=== PATIENT | female | born 1960 | race Caucasian/White ===

== ENCOUNTER 2018-12-24 16:08 | Emergency (ER) | payer MEDICAID, OTHER ==
[~2018-12-24] VITALS: Ht 165.1 cm; Wt 65.0 kg
[~2018-12-24 16:08] MED LIST: LISI-650; SIMV5TAB2
[2018-12-24 16:36] VITALS: BP 154/98
== END 2018-12-24 21:40 | disposition left against medical advice (07) ==
LOC: ER 16:08
DX: M79.652 Pain in left thigh (principal); Z53.21 Procedure and treatment not carried out due to patient leaving prior to being seen by health care provider

== ENCOUNTER 2020-12-13 10:21 | Emergency (ER) | payer SELFPAY ==
[~2020-12-13] VITALS: Ht 160 cm; Wt 65.0 kg
[2020-12-13] MEDS ORDERED: IBUPROFEN 600MG TABLET PO STA (10:43)
[2020-12-13] MEDS ORDERED: SODIUM CHLORIDE 0.9% 1,000 ML IV ONE (10:45)
[2020-12-13] MEDS ORDERED: ACETAMINOPHEN 325MG TABLET PO ONE (10:45)
[2020-12-13 11:13] LABS: HEMATOCRIT. 34.6 % (36.0-48.0); HEMOGLOBIN. 11.9 g/dL (12.0-16.0); MEAN CORPUSCULAR HEMOGLOBIN 29.3 pg (28.0-32.0); MEAN CORPUSCULAR VOLUME 85.1 fL (81.0-99.0); MEAN PLATELET VOLUME 7.9 fl (7.4-10.4); PLATELET 256 x1000/uL (130-400); RED BLOOD CELL COUNT 4.07 mill/uL (4.2-5.4); RED CELL DISTRIBUTION WIDTH 13.8 % (11.6-14.6)
[2020-12-13 11:16] LABS: CHLORIDE 106 mEq/L (98-107)
[2020-12-13 13:33] VITALS: BP 134/84
[2020-12-13 13:41] LABS: PLATELET ESTIMATE NORMAL
[2020-12-13] MEDS ORDERED: BENZ-16 MT (13:44)
== END 2020-12-13 13:58 | disposition home or self-care (01) ==
LOC: ER 10:21
DX: U07.1 COVID-19 (principal); B34.9 Viral infection, unspecified; E11.9 Type 2 diabetes mellitus without complications; I10 Essential (primary) hypertension; E78.00 Pure hypercholesterolemia, unspecified
CPT/HCPCS: 36415; 71045; 80053; 82962; 85025; 87426; 96360; 99284; C9803; J7030; U0003; U0005